=== PATIENT | female | born 1985 | race Native Hawaiian/Other Pacific Islander ===

== ENCOUNTER 2018-10-13 08:35 | Emergency (ER) | payer BC, OTHER ==
[2018-10-13 08:46] VITALS: BP 118/81
--- NOTE | 2018-10-13 09:19 | Emergency Department Report ---
ED Abdominal Pain HPI - General Chief Complaint: Abdominal Pain Stated Complaint: LT STOMACH PAIN Source: patient Mode of arrival: Ambulatory Limitations: No Limitations - History of Present Illness Initial Comments: This is a 33-year-old female that presents with left flank pain since this morning. Patient states symptoms started around 5 AM with sharp pain left abdomen area radiating to the left flank. Patient reports pain is sharp and constant. Her last menstrual period was 09/28/2018, A0. Past surgical history cholecystectomy and no prior medical history. Patient reports pain in his similar to gallstones. She denies nausea, vomiting, diarrhea, vaginal bleeding, vaginal discharge, urinary frequency, urgency, or dysuria. MD Complaint: flank pain -: This morning Time: 05:00 Location: L flank Radiation: none Migration to: no migration Severity: moderate Severity scale (0 -10): 6 Quality: stabbing, sharp Consistency: constant Improves With: nothing Worsens With: nothing Associated Symptoms: denies other symptoms - Related Data LMP Date: 09/28/18 Previous Rx's Medication Instructions Recorded Last Taken Type Nitrofurantoin [place]/M-Cryst 100 mg PO Q12HR #14 capsule 11/30/14 Unknown Rx [Macrobid] Ciprofloxacin HCl [Cipro] 500 mg PO BID #14 tablet 10/13/18 Unknown Rx Ketorolac [Toradol] 10 mg PO Q6H PRN #12 tablet 10/13/18 Unknown Rx Ondansetron [Zofran Odt] 4 mg PO Q8HR PRN #15 tab.rapdis 10/13/18 Unknown Rx Tamsulosin HCl [Flomax] 0.4 mg PO DAILY #5 cap.er.24h 10/13/18 Unknown Rx oxyCODONE /ACETAMINOPHEN [Percocet 1 tab PO Q6HR PRN #12 tablet 10/13/18 Unknown Rx 5/325] Allergies Allergy/AdvReac Type Severity Reaction Status Date / Time No Known Allergies Allergy Verified 11/30/14 08:00 ED Review of Systems ROS: Stated complaint: LT STOMACH PAIN Other details as noted in HPI Constitutional: denies: chills, fever Respiratory: denies: cough, shortness of breath, wheezing Cardiovascular: denies: chest pain, palpitations Gastrointestinal: abdominal pain. denies: nausea, diarrhea Genitourinary: denies: urgency, dysuria, discharge Musculoskeletal: back pain (left flank). denies: joint swelling, arthralgia Skin: denies: rash, lesions Neurological: denies: headache, weakness, paresthesias Psychiatric: denies: anxiety, depression ED Past Medical Hx - Past Medical History Previous Medical History?: No - Surgical History Past Surgical History?: Yes Hx Cholecystectomy: Yes - Social History Smoking Status: Never Smoker Substance Use Type: None - Medications Home Medications: Home Medications Medication Instructions Recorded Confirmed Last Taken Type Nitrofurantoin [place]/M-Cryst 100 mg PO Q12HR #14 capsule 11/30/14 Unknown Rx [Macrobid] Ciprofloxacin HCl [Cipro] 500 mg PO BID #14 tablet 10/13/18 Unknown Rx Ketorolac [Toradol] 10 mg PO Q6H PRN #12 tablet 10/13/18 Unknown Rx Ondansetron [Zofran Odt] 4 mg PO Q8HR PRN #15 tab.rapdis 10/13/18 Unknown Rx Tamsulosin HCl [Flomax] 0.4 mg PO DAILY #5 cap.er.24h 10/13/18 Unknown Rx oxyCODONE /ACETAMINOPHEN [Percocet 1 tab PO Q6HR PRN #12 tablet 10/13/18 Unknown Rx 5/325] ED Physical Exam - General Limitations: No Limitations General appearance: alert, in no apparent distress, obese - Respiratory Respiratory exam: Present: normal lung sounds bilaterally. Absent: respiratory distress - Cardiovascular Cardiovascular Exam: Present: regular rate, normal rhythm. Absent: systolic murmur, diastolic murmur, rubs, gallop - GI/Abdominal GI/Abdominal exam: Present: soft, tenderness (left upper quadrant and left lower quadrant), normal bowel sounds. Absent: distended, guarding, rebound, rigid, organomegaly, mass, bruit, pulsatile mass - Back Exam Back exam: Present: CVA tenderness (R), CVA tenderness (L) - Neurological Exam Neurological exam: Present: alert, oriented X3 - Psychiatric Psychiatric exam: Present: normal affect, normal mood - Skin Skin exam: Present: warm, dry, intact, normal color. Absent: rash ED Course Vital Signs 10/13/18 10/13/18 10/13/18 08:44 09:35 09:44 Temperature 97.7 F Pulse Rate 105 H Respiratory 16 18 20 Rate Blood Pressure 118/81 O2 Sat by Pulse 96 99 Oximetry 10/13/18 10/13/18 10:15 10:45 Temperature Pulse Rate Respiratory 18 18 Rate Blood Pressure O2 Sat by Pulse Oximetry ED Medical Decision Making - Lab Data Result diagrams: 10/13/18 09:28 10/13/18 10:20 Lab Results 10/13/18 10/13/18 10/13/18 Range/Units 08:40 09:28 09:28 WBC 11.2 H (4.5-11.0) K/mm3 RBC 4.69 (3.65-5.03) M/mm3 Hgb 13.5 (10.1-14.3) gm/dl Hct 41.1 (30.3-42.9) % MCV 88 (79-97) fl MCH 29 (28-32) pg MCHC 33 (30-34) % RDW 14.3 (13.2-15.2) % Sodium TNR Potassium TNR Chloride TNR Carbon Dioxide TNR Anion Gap TNR BUN TNR Creatinine TNR Estimated GFR TNR BUN/Creatinine Ratio TNR Glucose TNR Calcium TNR Total Bilirubin TNR AST TNR ALT TNR Alkaline Phosphatase TNR Total Protein TNR Albumin TNR Albumin/Globulin Ratio TNR Urine Color Yellow (Yellow) Urine Turbidity Slightly-cloudy (Clear) Urine pH 5.0 (5.0-7.0) Ur Specific [place] 1.033 H (1.003-1.030) Urine Protein <15 mg/dl (Negative) mg/dL Urine Glucose (UA) Neg (Negative) mg/dL Urine Ketones Neg (Negative) mg/dL Urine Blood Neg (Negative) Urine Nitrite Neg (Negative) Urine Bilirubin Neg (Negative) Urine Urobilinogen < 2.0 (<2.0) mg/dL Ur Leukocyte Esterase Tr (Negative) Urine WBC (Auto) 5.0 (0.0-6.0) /HPF Urine RBC (Auto) 5.0 (0.0-6.0) /HPF U Epithel Cells (Auto) 5.0 (0-13.0) /HPF Urine Mucus Few /HPF Urine HCG, Qual Negative (Negative) 10/13/18 Range/Units 10:20 WBC (4.5-11.0) K/mm3 RBC (3.65-5.03) M/mm3 Hgb (10.1-14.3) gm/dl Hct (30.3-42.9) % MCV (79-97) fl MCH (28-32) pg MCHC (30-34) % RDW (13.2-15.2) % Sodium 140 Potassium 4.2 Chloride 105.1 Carbon Dioxide 22 Anion Gap 17 BUN 16 Creatinine 0.9 Estimated GFR > 60 BUN/Creatinine Ratio 18 Glucose 113 H Calcium 8.5 Total Bilirubin 0.20 AST 16 ALT 16 Alkaline Phosphatase 73 Total Protein 7.1 Albumin 4.2 Albumin/Globulin Ratio 1.4 Urine Color (Yellow) Urine Turbidity (Clear) Urine pH (5.0-7.0) Ur Specific Palmer (1.003-1.030) Urine Protein (Negative) mg/dL Urine Glucose (UA) (Negative) mg/dL Urine Ketones (Negative) mg/dL Urine Blood (Negative) Urine Nitrite (Negative) Urine Bilirubin (Negative) Urine Urobilinogen (<2.0) mg/dL Ur Leukocyte Esterase (Negative) Urine WBC (Auto) (0.0-6.0) /HPF Urine RBC (Auto) (0.0-6.0) /HPF U Epithel Cells (Auto) (0-13.0) /HPF Urine Mucus /HPF Urine HCG, Qual (Negative) - Radiology Data Radiology results: report reviewed PROCEDURE: CT ABDOMEN PELVIS WO CON TECHNIQUE: CT of the abdomen and pelvis was performed. No IV contrast or oral contrast was administered. Axial images and coronal and sagittal reformatted images were obtained. HISTORY: LLQ LUQ tenderness, r/o kidney stones COMPARISON: None FINDINGS: There is a 3 mm obstructing stone in the distal left ureter causing mild left hydronephrosis and hydroureter. There is a small nonobstructing left intrarenal calculus. Within the limitations of a noncontrast exam, the visualized liver, spleen, pancreas, adrenal glands and kidneys demonstrate no significant abnormality. The patient is status post cholecystectomy. There is no abdominal aortic aneurysm. There is no evidence for intestinal obstruction. The appendix is normal. There is no abnormal fluid collection seen. There is no free intraperitoneal air. Bladder is unremarkable. IMPRESSION: There is a 3 mm obstructing stone in the distal left ureter causing mild left hydronephrosis and hydroureter. There is also small nonobstructing left intrarenal calculus. - Medical Decision Making Patient is stable and was examined by this provider. Vitals stable. Obtained CMP, CBC, UA, and CT of abdomen. All labs unremarkable. IV site obtained. Given zofran, morphine, Dilaudid, Toradol, and normal saline bolus. CT There is a 3 mm obstructing stone in the distal left ureter causing mild left hydronephrosis and hydroureter. There is also small nonobstructing left intrare nal calculus. Start Percocet, Flomax, Toradol, cipro, and Zofran for renal stones. Discussed plan with patient and agreed to plan. Discharged home in stable condition. Referral to urology. Follow up with PCP in 2-3 days. Critical care attestation.: If time is entered above; I have spent that time in minutes in the direct care of this critically ill patient, excluding procedure time. ED Disposition Clinical Impression: Nephrolithiasis, Left flank pain, Nausea and vomiting in adult, Renal colic on left side Disposition: TO HOME OR SELFCARE Is pt being admited?: No Does the pt Need Aspirin: No Condition: Stable Instructions: Abdominal Pain (ED), Kidney Stones (ED), Flank Pain (ED) Additional Instructions: Increase fluid intake to 2 L per day. Change diet to low-protein and a low-sodium diet to prevent reoccurrence. Strain urine to observe for passing stones. Follow-up with primary care doctor in 2-3 days. Follow-up with urology in 1-2 weeks for management of kidney stones. Prescriptions: Ciprofloxacin HCl [Cipro] 500 mg PO BID #14 tablet Tamsulosin HCl [Flomax] 0.4 mg PO DAILY #5 cap.er.24h oxyCODONE /ACETAMINOPHEN [Percocet 5/325] 1 tab PO Q6HR PRN #12 tablet PRN Reason: Pain Ketorolac [Toradol] 10 mg PO Q6H PRN #12 tablet PRN Reason: Pain Ondansetron [Zofran Odt] 4 mg PO Q8HR PRN #15 tab.rapdis PRN Reason: Nausea And Vomiting Referrals: [facility] [Other] - 3-5 Days [facility] [Provider Group] - 3-[address] [facility] [place] [Outside] - 3-5 Days [facility] [Outside] - 3-5 Days Forms: Work/School Release Form(ED) Time of Disposition: 12:53
[2018-10-13] MEDS ORDERED: NACL 0.9% 1000 ML 1,000 ML IV ONE (09:20)
[2018-10-13] MEDS ORDERED: MORPHINE IV ONE (09:21)
[2018-10-13 09:22] LABS: Bilirubin,Urine NEG (Negative); Blood,Urine NEG (Negative); Color,Urine Yellow (Yellow); Mucus,Urine FEW /HPF; Protein,Urine <15 mg/dL mg/dL (Negative); Urobilinogen,Urine < 2.0 mg/dL (<2.0)
[2018-10-13 09:27] LABS: HCG Qualitative,Urine Negative (Negative)
[2018-10-13] MEDS ORDERED: ZOFRAN ONE ×2 (09:37→09:42)
[2018-10-13] MEDS ORDERED: ZOFRAN IV ONE (09:40)
[2018-10-13 09:47] LABS: Hematocrit 41.1 % (30.3-42.9); Hemoglobin 13.5 gm/dl (10.1-14.3); Mean Corpuscular HGB Conc 33 % (30-34); Mean Corpuscular Volume 88 fl (79-97); Red Blood Count 4.69 M/mm3 (3.65-5.03); Red Cell Distribution Width 14.3 % (13.2-15.2)
[2018-10-13] MEDS ORDERED: TORADOL IV ONE (10:09)
[2018-10-13] MEDS ORDERED: TORADOL ONE (10:11)
[2018-10-13 10:14] LABS: BUN/Creatinine Ratio TNR; Blood Urea Nitrogen TNR mg/dL (7-17); Calcium TNR mg/dL (8.4-10.2)
[2018-10-13 10:15] LABS: Alanine Aminotransferase TNR units/L (7-56); Albumin TNR g/dL (3.9-5); Hemolysis Index TNR
[2018-10-13 10:54] LABS: Alanine Aminotransferase 16 units/L (7-56); Albumin 4.2 g/dL (3.9-5); BUN/Creatinine Ratio 18; Blood Urea Nitrogen 16 mg/dL (7-17); Calcium 8.5 mg/dL (8.4-10.2); Hemolysis Index 6
--- NOTE | 2018-10-13 12:07 | Cat Scan Report ---
PROCEDURE: CT ABDOMEN PELVIS WO CON TECHNIQUE: CT of the abdomen and pelvis was performed. No IV contrast or oral contrast was administer ed. Axial images and coronal and sagittal reformatted images were obtained. HISTORY: LLQ LUQ tenderness, r/o kidney stones COMPARISON: None FINDINGS: There is a 3 mm obstructing stone in the distal left ureter causing mild left hydronephrosis and hydr oureter. There is a small nonobstructing left intrarenal calculus. Within the limitations of a noncontrast exam, the visualized liver, spleen, pancreas, adrenal glands and kidneys demonstrate no significant abnormality. The patient is status post cholecystectomy. There is no abdominal aortic aneurysm. There is no evidence for intestinal obstruction. The appendix is normal. There is no abnormal fluid collection seen. There is no free intraperitoneal air. Bladder is unremarkable. IMPRESSION: There is a 3 mm obstructing stone in the distal left ureter causing mild left hydronephrosis and hydr oureter. There is also small nonobstructing left intrarenal calculus. This document is electronically signed by Virginia Ray MD., October 13 2018 12:05:25 PM ET
[2018-10-13] MEDS ORDERED: DILAUDID IV ONE (12:17)
[2018-10-13 14:11] LABS: Band Neutrophils # (Manual) 0.1 K/mm3; Basophils % (Manual) 0 % (0.0-1.8); Platelet Clumps Few; Platelet Estimate Consistent w Auto; RBC Morphology Normal; Total Cells Counted 100
[2018-10-13 14:12] LABS: Platelet Count 170 K/mm3 (140-440)
== END 2018-10-13 13:05 | disposition home or self-care (01) ==
LOC: ED 08:35
DX: N20.0 Calculus of kidney (principal); N23 Unspecified renal colic; R11.2 Nausea with vomiting, unspecified; Z90.49 Acquired absence of other specified parts of digestive tract
CPT/HCPCS: 36415; 74176; 80053; 81001; 81025; 85007; 85025; 96374; 96375; 99284; J1170; J1885; J2270; J2405; J7030